=== PATIENT | female | born 1960 | race Caucasian/White ===

== ENCOUNTER 2019-05-23 01:58 | Outpatient (CLI) | payer BC, SELFPAY ==
--- NOTE | 2019-05-23 | DI.MAMMO_ITS ---
EXAM: MG MAMMO SCREENING CLINICAL HISTORY: SCREENING, Z12.31 TECHNIQUE: Mammograms were interpreted according to the usual protocol including computer analysis w [employer] CAD system, tomosynthesis and C-view imaging. COMPARISON: FINDINGS: Breasts are heterogeneously dense. There are numerous punctate microcalcifications predominantly in the upper outer quadrant of the left breast. No gross interval change appearance comparison with carolee or studies including January 2017. No new mass or clumped microcalcification seen. IMPRESSION: No specific evidence of malignancy at this time. Routine screening examinations are suggested at ye yosi intervals due to the family history of breast carcinoma. Category 1 breast density category C
== END 2019-05-23 02:18 ==
PROVIDERS: PCP Family Medicine; Visit Provider Family Medicine
DX: Z12.31 Encounter for screening mammogram for malignant neoplasm of breast (principal)
CPT/HCPCS: 77063; 77067

== ENCOUNTER 2019-05-23 10:02 | Outpatient (REF) | payer BC, SELFPAY ==
--- NOTE | 2019-05-23 09:30 | PAPFT_PTH ---
PATIENT: Mariya Dodson LOC: [facility] U#:[id number] AGE/SX: 58/F ROOM: RE05/23/[address]: KHADIJAH Srinivasan : 1960 BED: DIS: 05/23/2019 SPEC #: [id number] RECD: 05/23/19 12:47 STATUS: [place] RESánchez #: [id number] MAYO: 05/23/19 09:[address]: Michelle Britton DEPT: [facility] Cytology RECD BY: Franny Stevens ENTERED: 05/23/19 12:47 SP TYPE: PAPFT OTHR DR: Sirisha Pedraza Tissues: 1 - CX/ENDOCX FOR PAP SMEARS Procedures: PAP THIN PREP/UVM Screening HPV DNA PROBE Comments: [id number]
== END 2019-05-23 10:22 ==
LOC: LBN 10:02
PROVIDERS: PCP Family Medicine; Visit Provider Nurse Practitioner Family
DX: Z12.4 Encounter for screening for malignant neoplasm of cervix (principal); Z11.51 Encounter for screening for human papillomavirus (HPV)
CPT/HCPCS: 88142; 87624

== ENCOUNTER 2020-07-11 19:18 | Emergency (ER) | payer BC, SELFPAY ==
[2020-07-11 19:27] VITALS: BP 137/65; PULSE 75; RESP 16; TEMP 36.7; O2SAT 96
--- NOTE | 2020-07-11 19:30 | DI.RAD_ITS ---
EXAM: XR KNEE LT 3V AP,LAT,SMILEY CLINICAL HISTORY: knee pain. TECHNIQUE: 2D digital imaging was performed. COMPARISON: No exams were available for comparison FINDINGS: BONES: No acute fracture is present. No bony destructive lesion is seen. There is an enthesophyte at the superior patella. JOINTS: The knee is normally aligned. No joint effusion is seen. SOFT TISSUE: Normal. IMPRESSION: No acute abnormality. DATA REPOSITORY: RADIATION DOSE DELIVERED:
--- NOTE | 2020-07-11 19:44 | ED.GENADUL_ITS ---
Discharge Plan Disposition Patient Disposition: HOME Condition: Stable Discharge Details Clinical Impression: Knee pain, left Primary Care Provider: Sirisha Pedraza ED Provider: Jasper Palomo Home Meds and New Rx's Prescriptions: Continued One-A-Day Women's 50 Plus 400-20 mcg tablet 1 tab PO DAILY RF: 0 cholecalciferol (vitamin D3) [Vitamin D3] 25 mcg (1,000 unit) Capsule 500 unit PO DAILY RF: 0 Discharge Instructions Instructions: Knee Pain (ED) Additional Instructions: Your xray did not show any abnormalities of the bone of your knee. I suspect you have a sim's cyst which is usually self limiting and resolves on its own you should be contacted with an appointment to return to have an ultrasound done by radiology tomorrow you can take 1000mg tylenol and 600mg ibuprofen every 6 hours for pain as needed if you have severe worsening pain, feel more ill or difficulty breathing return to the emergency department Medical Decision Making 59 yo female with no chronic medical problems comes in with 2 weeks of nontraumatic left posterior knee pain. 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 No fevers or chills, states the back of her left knee feels swollen. Denies calf tenderness and on exam both legs seem symmetric without visible swelling of the left leg compared to the right leg. Has full rom of the leg with normal cap refill and sensationand no calf tenderness. Has pain with palpation to the posterior left knee. No erythema or warmth on exam. On bedside u/s has collapsing popliteal vein. I suspect bakery's cyst vs arthritis vs bursitis, no findings to suggest septic joint and based on exam less likely to be a dvt. Will obtain xray to evaluate for possible arthritis and less likely fracture. pt remains stable and still only has pain behind the knee on the left. Xray shows no acute pathology, they noted enthersopathy on xray. Stable exam. Suspect bursitis vs sim's cyst but will have her return tomorrow for an u/s. Will have her start ibuprofen and tylenol. I did offer muscle relaxers for possible relief of muscle spasm associated with the pain but she declined. Usually and customary return precautions given Differential Diagnosis Differential Diagnosis: sim's cyst, dvt, arthritis Imaging Data Radiologic Study: Attestation: I personally reviewed and interpreted this imaging study as follows: Imaging: X-Ray My impression: no acute findings Radiologist's impression: IMPRESSION: Chronic distal quadriceps enthesopathy, otherwise unremarkable exam. HPI General Mode of arrival: ambulatory . Date/Time Provider Initiated Documentation: 07/11/20 19:19 . Limitations to Documentation: no limitations . Information obtained by: patient . History of Present Illness 59 year old F presents to the emergency department with the chief complaint of left knee pain, described as moderate, Patient started experiencing this week(s) (2) and it has been constant. Rest improves symptom(s), Movement worsens symptoms . Patient notes no other symptoms.. Patient did receive the following treatments prior to arrival, none Related Data Home Medications Medication Instructions Recorded Confirmed kezgpmncquaw-onrmwqre-cupivrn-folic 1 tab PO DAILY 05/23/19 07/11/20 acid 400 mcg-vit K1 20 mcg tablet cholecalciferol (vitamin D3) 500 unit PO DAILY 07/11/20 07/11/20 [Vitamin D3] Allergies Allergy/AdvReac Type Severity Reaction Status Date / Time No Known Allergies Allergy Verified 07/11/20 19:33 General Stated Complaint: Vascular NARCISO: 3 Review of Systems All systems reviewed & are unremarkable except as noted in HPI and below Constitutional Constitutional: Denies chills, Denies fever(s) and Denies weakness Cardiovascular Cardiovascular: Denies chest pain and Denies dyspnea Respiratory Respiratory: Denies cough and Denies dyspnea Gastrointestinal Gastrointestinal: Denies abdominal pain, Denies nausea and Denies vomiting Neurologic Neurologic: Denies weakness Psychiatric Psychiatric: Denies depression [facility] Medical History (Updated 07/11/20 @ 20:18 by Jasper Palomo MD) BMI 39.0-39.9,adult Lumbar foraminal stenosis 06/2015 L4-L5 R sided spinal stenosis. Is scheduled for L4-L5 decompression. Radha-menopause irreg cycles. No VMS. Surgical History (Updated 01/12/18 @ 14:35 by [employer] MA) Ligation of fallopian tube Family History Mother Heart disease Social History Smoking/Tobacco Use Status: Never Smoking risk assessment performed?: Yes Alcohol Intake: never Drug use: Never Substance use type: does not use Do you feel safe at home: Yes Do you feel safe in your relationship?: Yes Female Reproductive History Menstrual Menopause type: natural History History 4 Para 4 Hx # Term Pregnancies Multiple births Hx # Pregnancies Ectopic pregnancies AB induced Hx Number of Living Children AB spontaneous Exam Const General: no acute distress Orientation: alert HENMT Head: normal to inspection Ears: external ears normal General nose exam: external nose normal Mouth: moist mucous membranes Eyes General: appearance normal, both eyes and all related structures Neck Neck: normal visual inspection Resp Effort & Inspection: normal respiratory effort and able to speak in complete sentences Cardio Rate: regular rate Skin General skin exam: no rashes or lesions noted Neuro General: patient alert and patient oriented x3 Extrem General: full ROM and capillary refill normal Psych Mental Status: mental status grossly normal Course Vital Signs Vital signs: Vital Signs Temperature 36.7 C 07/11/20 19:27 Pulse 75 07/11/20 19:27 Respiratory Rate 16 07/11/20 19:27 Blood Pressure 137/65 07/11/20 19:27 Pulse Oximetry 96 07/11/20 19:27 Temperature 36.7 C 07/11/20 19:27 Temperature Source Skin 07/11/20 19:27 Pulse 75 07/11/20 19:27 Respiratory Rate 16 07/11/20 19:27 Blood Pressure 137/65 07/11/20 19:27 Blood Pressure Position Sitting 07/11/20 19:27 Pulse Oximetry 96 07/11/20 19:27 Oxygen Delivery Method Room Air 07/11/20 19:27 Oxygen Flow Rate 0 07/11/20 19:27 Pain Level 8 07/11/20 19:27
[2020-07-11 19:52] VITALS: RESP 18
--- NOTE | 2020-07-11 20:11 | DI.VRAD_ITS ---
PROCEDURE INFORMATION: Exam: XR Left Knee Exam date and time: 07/11/2020 7:58 PM Age: 59 years old Clinical indication: Pain; Knee; Left TECHNIQUE: Imaging protocol: XR Left knee. Views: 3 views. COMPARISON: No relevant prior studies available. FINDINGS: Bones/joints: Small superior pole patellar enthesophyte. Knee joint spacing and alignment are anatomic. No fracture or dislocation. No joint effusion. Normal osseous mineralization. Soft tissues: Normal. IMPRESSION: Chronic distal quadriceps enthesopathy, otherwise unremarkable exam. Dictated and Authenticated by: Holland Meek MD. Ordering:ARVIN Hutchinson MD
[2020-07-11] MEDS: Ibuprofen 600 MG TAB PO (20:14)
[2020-07-11 20:15] VITALS: BP 117/47; PULSE 70; RESP 16; O2SAT 97
== END 2020-07-11 20:37 | disposition home or self-care (01) ==
PROVIDERS: Emergency Provider Emergency Medicine; PCP Family Medicine
DX: M25.562 Pain in left knee (principal)
CPT/HCPCS: 73562; 99283

== ENCOUNTER 2020-07-12 10:40 | Outpatient (CLI) | payer BC, SELFPAY ==
[2020-07-12 12:29] LABS: HCT 42.3 % (36.0-46.0); HGB 13.5 g/dL (11.2-15.7); MCHC 31.9 % (32.0-36.0); MPV 10.3 fL (8.0-11.0); Platelet Count 270 10^3/uL (130-400); RBC 4.65 10^6/uL (3.93-5.22); RDW 12.5 % (11.7-14.6); RDW-SD 41.7 fL
[2020-07-12 13:35] LABS: D-Dimer 306 ng/mlFEU (<500)
== END 2020-07-12 10:41 | disposition home or self-care (01) ==
LOC: LBO 10:41
PROVIDERS: PCP Family Medicine; Visit Provider Family Medicine
DX: M79.605 Pain in left leg (principal)
CPT/HCPCS: 36415; 85027; 85379

== ENCOUNTER 2020-07-12 12:59 | Emergency (ER) | payer BC, SELFPAY ==
[2020-07-12 13:02] VITALS: BP 155/71; PULSE 64; RESP 20; TEMP 36.3; O2SAT 97
--- NOTE | 2020-07-12 13:05 | W.ED.GENAD ---
Discharge Plan Disposition Patient Disposition: HOME Condition: Stable Discharge Details Clinical Impression: Knee pain, left Primary Care Provider: Sirisha Pedraza ED Provider: Katherine Miner Home Meds and New Rx's Prescriptions: No Action One-A-Day Women's 50 Plus 400-20 mcg tablet 1 tab PO DAILY RF: 0 cholecalciferol (vitamin D3) [Vitamin D3] 25 mcg (1,000 unit) Capsule 500 unit PO DAILY RF: 0 Discharge Instructions Instructions: Knee Sprain (ED) Additional Instructions: The ultrasound today was negative for deep venous thrombosis or Guajardo's cyst. Rest, ice, compression, elevation. Alternate ice and heat. Please take Tylenol or Ibuprofen with food every 4-6 hours as needed for pain and swelling. Follow up with primary care provider in 3-5 days. Return to ED sooner if any worsening or concerns. Increase oral fluids. Referrals: Sirisha Pedraza [Primary Care Provider] - Medical Decision Making Ultrasound results reveals no DVT no Guajardo's cyst. Results discussed with patient plan is for discharge home with follow-up with PCP. EXAM: US LOWER EXTREMITY VENOUS LT CLINICAL HISTORY: LT KNEE PAIN TECHNIQUE: Left lower extremity venous ultrasound performed using grayscale, color-flow, and spectral Doppler analysis. COMPARISON: No exams were available for comparison FINDINGS: The left common femoral, femoral and popliteal veins demonstrate normal compressibility, augmentation, and color Doppler. The posterior tibial veins are patent. The saphenofemoral junction is unremarkable. There is no evidence of a Guajardo cyst. The soft tissues are unremarkable. IMPRESSION: No DVT. Discussed RICE procedures with patient who verbalizes understanding. HPI General Mode of arrival: ambulatory. Date/Time Provider Initiated Documentation: 07/12/20 13:04. Limitations to Documentation: no limitations. Information obtained by: patient and old records reviewed. HPI Narrative: D9-year-old female presents the ER for follow-up on a ultrasound of the left lower extremity which was done this morning. Related Data Home Medications Medication Instructions Recorded Confirmed nwzsqgeozwqm-ntvqbtia-zbsetei-folic 1 tab PO DAILY 05/23/19 07/12/20 acid 400 mcg-vit K1 20 mcg tablet cholecalciferol (vitamin D3) 500 unit PO DAILY 07/11/20 07/12/20 [Vitamin D3] Allergies Allergy/AdvReac Type Severity Reaction Status Date / Time No Known Allergies Allergy Verified 07/11/20 19:33 General Stated Complaint: Recheck NARCISO: 4 Review of Systems All systems reviewed & are unremarkable except as noted in HPI and below Musculoskeletal Musculoskeletal: Reports arthralgias (Left knee) COUNT INCLUDES THE [facility] Medical History (Updated 07/12/20 @ 13:14 by Katherine Miner) BMI 39.0-39.9,adult Lumbar foraminal stenosis 06/2015 L4-L5 R sided spinal stenosis. Is scheduled for L4-L5 decompression. Radha-menopause irreg cycles. No VMS. Surgical History (Updated 01/12/18 @ 14:35 by [employer] [place]) Ligation of fallopian tube Family History Mother Heart disease Social History Smoking/Tobacco Use Status: Never Smoking risk assessment performed?: Yes Alcohol Intake: never Drug use: Never Substance use type: does not use Do you feel safe at home: Yes Do you feel safe in your relationship?: Yes Female Reproductive History Menstrual Menopause type: natural History History 4 Para 4 Hx # Term Pregnancies Multiple births Hx # Pregnancies Ectopic pregnancies AB induced Hx Number of Living Children AB spontaneous Exam Const General: cooperative, healthy appearing, comfortable and well developed Nutritional Appearance: well nourished Orientation: alert, awake and oriented x3 Resp Effort & Inspection: normal respiratory effort and able to speak in complete sentences Extrem General: normal to inspection Course Vital Signs Vital signs: Vital Signs Temperature 36.3 C L 07/12/20 13:02 Pulse 64 07/12/20 13:02 Respiratory Rate 20 07/12/20 13:02 Blood Pressure 155/71 H 07/12/20 13:02 Pulse Oximetry 97 07/12/20 13:02 Temperature 36.3 C L 07/12/20 13:02 Temperature Source Skin 07/12/20 13:02 Pulse 64 07/12/20 13:02 Respiratory Rate 20 07/12/20 13:02 Respiratory Effort Non-Labored 07/12/20 13:05 Blood Pressure 155/71 H 07/12/20 13:02 Blood Pressure Position Sitting 07/12/20 13:02 Pulse Oximetry 97 07/12/20 13:02 Oxygen Delivery Method Room Air 07/12/20 13:02 Oxygen Flow Rate 0 07/12/20 13:02 Pain Level 4 07/12/20 13:02
== END 2020-07-12 13:16 | disposition home or self-care (01) ==
PROVIDERS: Emergency Provider Registered Nurse Emergency; PCP Family Medicine
DX: M25.562 Pain in left knee (principal)

== ENCOUNTER 2020-10-07 01:27 | Outpatient (CLI) | payer BC, SELFPAY ==
--- NOTE | 2020-10-07 07:45 | DI.MAMMO_ITS ---
Exam(s) MAMMO SCREENING EXAM: MAMMO SCREENING CLINICAL HISTORY: screening,Z12.39. TECHNIQUE: Bilateral full field digital CC and MLO mammographic images were obtained with 3D tomosyn thesis and utilizing computer aided detection (CAD). COMPARISON: Prior mammograms dating back to 2011, the most recent being April 2019. FINDINGS: The fibroglandular tissue pattern is dense, this decreasing the sensitivity of the mammogram for find ing hidden underlying lesions. There is an asymmetric density seen superiorly in the right breast located 9 cm above the nipple on t he MLO view but unchanged from all prior studies and therefore benign. There are numerous benign-appearing microcalcifications both breasts again noted. There are no new spiculated masses nor new malignant appearing microcalcification groups. There is no significant architectural distortion nor skin thickening-retraction. IMPRESSION: Dense bilateral fibroglandular tissue. Stable benign findings. No obvious radiographic evidence of malignancy. BI-RADS Category 2 - Benign Findings Breast Density - Category C - Heterogeneously dense Breast density Category C or D implies that the patient has dense breast tissue. Dense breast tissue can make it harder to find cancer on a mammogram. Dense breast tissue is also associated with an incr eased risk of breast cancer. This information about the result of the mammogram report was provided to the patient to raise their awareness. Use this report when you speak with the patient about their risks for breast cancer, which includes their family history. At that time, you may recommend additional screening tests (Ultrasoun d or MRI) as these tests may add significant information. A negative radiographic report should not delay biopsy if a dominant or clinically suspicious mass is present. Up to ten percent of cancers are not identified on mammography. A negative report may reinforce clinical impression. Adenosis and dense breasts may obscure an underlying neoplasm. False positive reports average 6 to 10%. Patient will receive a letter notifying them of these results.
== END 2020-10-07 01:47 ==
PROVIDERS: PCP Family Medicine; Visit Provider Nurse Practitioner Family
DX: Z12.31 Encounter for screening mammogram for malignant neoplasm of breast (principal); R92.8 Other abnormal and inconclusive findings on diagnostic imaging of breast
CPT/HCPCS: 77063; 77067

== ENCOUNTER 2021-04-11 03:41 | Outpatient (CLI) | payer BC, SELFPAY ==
[2021-04-11 10:24] LABS: Source Nasal/Nares
[2021-04-11 13:23] LABS: COVID-19 PCR Negative (Negative)
== END 2021-04-11 03:42 | disposition home or self-care (01) ==
LOC: LBO 03:41
PROVIDERS: PCP Family Medicine; Visit Provider Surgery
DX: Z20.822 Contact with and (suspected) exposure to COVID-19 (principal)
CPT/HCPCS: 87635

== ENCOUNTER 2021-04-14 07:02 | Day surgery (SDC) | payer BC, SELFPAY ==
--- NOTE | 2021-04-14 06:38 | W.COLOREPORT ---
Colonoscopy Report Date of procedure: 04/14/21 Pre-op diagnosis general: Colon Cancer Screening for hx of colon polyps Post-op diagnosis procedure note: other (diverticulosis, polyps) Procedure: Colonoscopy with polypectomy Surgeon: Fidelina Louis Anesthesia Type: General:No Airway (Maritza Shields CRNA) Estimated blood loss (mL): 3 Pathology: other (ascending polyp, rectal polyp x2) Complications: None Disposition: same day Indications: The patient is here for Colonoscopy pre-op. Her last screening was in 2015 and was remarkable for tubular adenomatous polyp. She has no family history of colon cancer. She has not had any bowel habit changes. -Discussed colonoscopy bowel prep as well as the procedure. Discussed possible complications of the procedure to include bleeding, pain, perforation, missed small lesion/polyp, sore throat, aspiration and adverse reaction to the medications. Questions were answered to patient?s satisfaction. No guarantees were implied or given. Prep: Miralax/Dulcolax Procedure Start Time: 08:31 Procedure End Time: 08:59 Retraction Time: 14 minutes Findings: 3 small , <5 mm, polyps moderate sigmoid diverticulosis Procedure Description: After informed consent was obtained the patient was taken to the procedure room and placed in a left decubitous position. Monitors were applied and a time out was done. The patients name, date of , procedure, allergies to medications and metal in their body was reviewed. The patient was then sedated. Once sedated and comfortable a rectal exam was done. External exam was normal. Internal exam revealed a normal sphincter tone and no palpable masses. The scope was then introduced and retro-flexed. No internal hemorrhoids, polyps or masses were identified on retro-flexion. The scope was then advanced to the cecum without difficulty. The ileocecal vlave and appendiceal orifice were identified. The prep was good. The scope was then slowly retracted over 14 minutes back into the rectum. Polyps were removed with cold forceps in the ascending colon x1 and rectum x2. There was moderate sigmoid diverticulosis noted. The scope was removed and the patient was woken up and taken back to Same day surgery in stable condition. The patient tolerated the procedure well and there were no immediate complications. Follow up: The patient should follow up in 5 years unless they develop changes in bowel habits or other new gastrointestinal complaints.
--- NOTE | 2021-04-14 06:39 | W.PM.DSUDISC ---
Discharge Plan Disposition Patient Disposition: HOME Condition: Good Discharge Details Reason For Visit: Colonoscopy Attending Provider: Fidelina Louis Primary Care Provider: Sirisha Pedraza Home Meds and New Rx's Prescriptions: Continued multivitamin Tablet 1 tab PO DAILY RF: 0 betamethasone dipropionate 0.05 % cream 1 applic topical DAILY PRNRF: 0 Exema Essential Oil topical RF: 0 cholecalciferol (vitamin D3) [Vitamin D3] 25 mcg (1,000 unit) Capsule 500 unit PO DAILY RF: 0 Discontinued bisacodyl [Dulcolax (bisacodyl)] 5 mg tablet,delayed release (DR/EC) 5 mg PO ONCE Qty: 4 RF: 0 polyethylene glycol 3350 17 gram/dose powder 17 g PO ONCE Qty: 238 RF: 0 Discharge Instructions Instructions: Diverticulosis (DC), Colorectal Polyps (DC) Additional Instructions: Findings: 3 small polyps moderate diverticulosis Follow up: 5 years Please call if you develop: fevers >101.5 Nausea or Vomiting Abdominal pain that is not transient Rectal bleeding that is more then a tbsp A hard abdomen and inability to pass gas DAY SURGERY UNIT POST ENDOSCOPY INSTRUCTIONS Instructions for everyone who is given Anesthesia: For your safety, please do the following for the next 24 Hours: a. Do not drive or operate dangerous equipment b. Do not drink alcohol beverages or use any recreational drugs for the first 24 hours or while taking pain medications. The medications in your body may have a reaction that can be dangerous. c. Do not make any important decisions or sign any important papers 1. Generally there are no restrictions on your activity after a day or so has gone by, but you may feel a bit fatigued for a few days. 2. After you arrive home you may have a light meal and return to a normal diet as you can tolerate it without feeling sick to your stomach. 3. After surgery, you may feel pain or discomfort. This should be only transient, but if it persists please contact your doctor. 4. If there are any questions regarding the findings of your procedure, please feel free to contact your doctor. 6. If you are unable to contact your doctor with a problem, contact the hospital at [phone]. 7. Continue all your regular medications unless directed otherwise. I understand the above instructions and have no questions. Signature of Patient or Responsible Adult Escort Date/Time Name of Responsible Adult Escort Signature of Nurse Date/Time Activity:: Activity as Tolerated Diet:: high fiber Discharge Orders Discharge Orders: Discharge Order (Routine); Ordered 04/14/21 Ordered By: Fidelina Louis
[2021-04-14 07:20] VITALS: BP 147/76; PULSE 72; RESP 16; TEMP 36.1; O2SAT 98
--- NOTE | 2021-04-14 07:42 | ANES.PREOP_ITS ---
General Info Date of Service Date Performed: 04/14/21 Height: 5 ft 1 in Weight: 95.3 kg Body Mass Index (BMI): 39.6 Surgical Procedure: Operation Date: 04/14/21 08:35 Proposed Procedures Side Surgeon p Colonoscopy Fidelina Louis MD Meds Allergies and Home Medications Allergies Allergy/AdvReac Type Severity Reaction Status Date / Time No Known Allergies Allergy Verified 04/14/21 07:18 Home Medication Medication Instructions Recorded cholecalciferol (vitamin D3) 500 unit PO DAILY 07/11/20 [Vitamin D3] Exema Essential Oil TOPICAL 10/07/20 bisacodyl 5 mg tablet,delayed 5 mg PO ONCE #4 tab 04/03/21 release multivitamin 1 tab PO DAILY 04/03/21 polyethylene glycol 3350 17 17 g PO ONCE #238 g 04/03/21 gram/dose oral powder betamethasone dipropionate 0.05 % 1 applic TOPICAL DAILY PRN 04/04/21 topical cream Current Visit Medications: Current Medications Generic Name Dose Route Start Last Admin Trade Name Mehulq PRN Reason Stop Dose Admin Hyoscyamine Sulfate 0.125 mg 04/14/21 06:39 Hyoscyamine 0.125 Mg Sl/Oral/Chew SL DIRECTED PRN Ringer's Solution 1,000 mls @ 80 mls/hr 04/14/21 06:00 IV 05/11/21 23:59 INFUSION [facility] IV Miscellaneous Supplies 1 each 04/14/21 06:00 Iv Access IV 05/11/21 23:59 DIRECTED ADAMARIS Ondansetron HCl 4 mg 04/14/21 06:39 Ondansetron 4 Mg/2 Ml Vial IVP Q4H PRN PRN Nausea / Vomiting Sodium Chloride 0 ml 04/14/21 06:00 Normal Saline Flush 10 Ml Syr IV 05/11/21 23:59 PRN PRN Sodium Chloride 0 ml 04/14/21 06:00 Normal Saline 10 Ml Vial IJ 05/11/21 23:59 DIRECTED PRN Sterile Water 0 ml 04/14/21 06:00 Water,Injection,Sterile 10 Ml Vial IJ 05/11/21 23:59 DIRECTED PRN PFSH Active Problems Active Problems: Problem Status Onset Code Screening for colon cancer Z12.11 Left bundle branch block I44.7 Medical History Medical History BMI 39.0-39.9,adult Eczema Knee pain, left Lumbar foraminal stenosis 06/2015 L4-L5 R sided spinal stenosis. Is scheduled for L4-L5 decompression. Radha-menopause irreg cycles. No VMS. Varicose veins of both lower extremities Surgical History Surgical History (Updated 04/14/21 @ 07:18 by Lulu Crabtree RN) History of lumbar laminectomy Ligation of fallopian tube Tobacco Smoking/Tobacco Use Status: Never Alcohol Alcohol Intake: never Substance Use Substance use: Never Substance use type: does not use Prental History History 4 Para 4 Hx # Term Pregnancies Multiple births Hx # Pregnancies Ectopic pregnancies AB induced Hx Number of Living Children AB spontaneous Vital Signs and Lab Results Vital Signs Most Recent Vital Signs in EMR: Most Recent Vital Signs Temp Pulse Resp BP Pulse Ox 36.1 C L 72 16 147/76 H 98 04/14/21 07:20 04/14/21 07:20 04/14/21 07:20 04/14/21 07:20 04/14/21 07:20 Lab Results Blood Type / Crossmatch: No Data to Display Complete Blood Count: No Data to Display Complete Metabolic Panel: No Data to Display Liver Function Panel: No Data to Display Coagulation Panel: No Data to Display Cardiac Panel: No Data to Display Arterial Blood Gas: No Data to Display Venous Blood Gas: No Data to Display Pancreas Panel: No Data to Display Thyroid Panel: No Data to Display Infectious Disease: Coronavirus (COVID-19)(PCR) Negative (Negative) 04/11/21 08:55 04/11/21 Coronavirus 2019 Source Nasal/Nares 04/11/21 08:55 04/11/21 Blood Cultures: No Data to Display Toxicology Panel: No Data to Display Imaging and Studies Imaging and Studies Study information below may be from another EMR and interpreted by another provider. Please see original notes in EMR for more complete details. Carotid Artery Summary:: IMPRESSION: No evidence of a hemodynamically significant carotid stenosis. 11/12/15 Anesthesia Assessment and Plan Anesthesia History Personal History: No History of Anesthesia Complications Family History: No Family History of Anesthesia Complications Exercise Tolerance Exercise Tolerance: Metabolic Equivalents>4 Pertinent Negatives Pertinent Negatives: No Symptoms of GERD, No Major Cardiovascular Symptoms or Complaints, No Major Pulmonary Symptoms or Complaints and No History of CVA/TIA Cardiac & Pulmonary Exam Cardiac Exam: Normal S1/S2 Heart Sounds Pulmonary Exam: Clear Bilateral Breath Sounds Implantable Cardiac Device Does patient have a Pacemaker or an ICD?: No Airway Exam Known Difficult Airway: No Mallampati Class: 2 Mouth Opening: Normal (> 3cm) Thyromental Distance: Greater than 3 cm Neck Range of Motion: Full ROM Neck Circumference: Thick Teeth Condition: Normal Dentition ASA Classification ASA Score: ASA 3 Emergency Case?: No NPO Status NPO Status: NPO Clears >2 hours, Solids >8 hours Anesthesia Plan Resuscitation Status: Full Code Anesthesia Technique: General Anesthesia Airway Planned: Natural Airway Monitors Used: Standard Monitors
[2021-04-14] MEDS: Lactated Ringers 1,000 ML 80 ML IV (07:55)
[2021-04-14 08:21] VITALS: BMI 39.6
--- NOTE | 2021-04-14 08:46 | BOWEL_PTH ---
PATIENT: Mariya Dodson LOC: [facility] U#:[id number] AGE/SX: 60/F ROOM: RE04/14/[address]: Fidelina Louis MD : 1960 BED: DIS: 04/14/2021 SPEC #: [id number] RECD: 04/14/21 12:28 STATUS: [place] RESánchez #: [id number] MAYO: 04/14/21 08:[address]: Fidelina Louis DEPT: Surgical Specimen RECD BY: Franny Stevens ENTERED: 04/14/21 12:29 SP TYPE: Bowel OTHR DR: Sirisha Pedraza Tissues: 1 - BIOPSY BOWEL 2 - BIOPSY BOWEL Procedures: GROSS AND MICRO LEVEL 4 Comments: [id number]
[2021-04-14 09:07] VITALS: BP 136/77; PULSE 71; RESP 18; TEMP 36.5; O2SAT 97
--- NOTE | 2021-04-14 09:17 | W.ANESPOSTOP ---
Postoperative Evaluation Date, Time and Location Date Performed: 04/14/21 Time Performed: 09:07 Patient Location: Day Surgery Unit Vital Signs Most Recent Imported Vital Signs: Most Recent Vital Signs Temp Pulse Resp BP Pulse Ox 36.5 C 71 18 136/77 97 04/14/21 09:07 04/14/21 09:07 04/14/21 09:07 04/14/21 09:07 04/14/21 09:07 Pain Score Most Recent Pain Score: Most Recent Pain Score Pain Level 0 04/14/21 09:07 Assessment Mental Status: Awake (Alert & Oriented to Patient Baseline) Airway and Respiratory Function: Patent airway with normal (patient baseline) respiratory exam Cardiovascular Function: Hemodynamically Stable Hydration Status: Adequately Hydrated Nausea & Vomiting: No Nausea or Vomiting Pain: Pt. Denies Any Pain Peripheral Nerve Block: Patient did not receive a nerve block
[2021-04-14 09:35] VITALS: BP 133/75; PULSE 67; RESP 16; TEMP 36.4; O2SAT 97
== END 2021-04-14 10:20 | disposition home or self-care (01) ==
PROVIDERS: PCP Family Medicine; Visit Provider Surgery
PROC: 0DJD8ZZ Inspection of Lower Intestinal Tract, Via Natural or Artificial Opening Endoscopic (ICD-10-PCS; CPT 45378; principal; 2021-04-14 08:30)
DX: Z12.11 Encounter for screening for malignant neoplasm of colon (principal); D12.2 Benign neoplasm of ascending colon; K62.1 Rectal polyp; Z86.010 Personal history of colon polyps; K57.30 Diverticulosis of large intestine without perforation or abscess without bleeding
CPT/HCPCS: 45380; 88305; J2001

== ENCOUNTER → 2021-06-30 01:03 | Outpatient (CLI) | payer BC, SELFPAY ==
--- NOTE | 2021-06-30 14:45 | DI.MRI_ITS ---
Exam(s) MR UPPER JOINT LT WO EXAM: MR UPPER JOINT LT WO CLINICAL HISTORY: LT SHOULDER PAIN, M25.512, BICEPS TENDINITIS OF LT SHOULDER, M75.22 TECHNIQUE: Multiplanar multisequence MRI of the shoulder was performed. There are no prior shoulder imaging studies for comparison. No prior plain films of the left shoulde r available time this MRI interpretation. COMPARISON: None FINDINGS: MARROW:No evidence of fracture, Hill-Sachs deformity, bony Bankart lesion, nor ominous osseous lesion s there are degenerative subarticular cysts in the inferior half of the osseous glenoid. ROTATOR CUFF MECHANISM: AC JOINT/ACROMIUM: There are mild degenerative changes in the AC joint. No downgoing osteophytes alt dao there is mild hypertrophied undersurface tissue causing some pinch mint. The undersurface of t he acromion is concave. No undersurface impingement hook noted. There is no obvious calcification i n the coracoacromial ligament There is no evidence of os acromiale. Supraspinatus: There is a prominent signal void in the supraspinatus tendon consistent with a chunk o f calcium, this measuring 1.5 cm AP by 1.3 cm wide by 0.8 cm craniocaudal. Consider cyst into with c alcific rotator cuff tendinitis. There is some adjacent signal abnormality in the supraspinatus tend on with which are but without an obvious full-thickness tear. There is, however, some fluid in the o verlying subacromial-subdeltoid bursa, probably an element of bursitis. There is no atrophy of the s upraspinatus. No retraction of the musculotendinous junction. Infraspinatus: Intact. No evidence of tear nor muscle atrophy. Teres Minor: Intact. No evidence of tear nor muscle atrophy. Subscapularis/anterior cuff: Intact. No abnormal signal at the level of the multipennate insertional fibers. No significant tear nor atrophy. BICEPS TENDON: Normally position in the intertubercular groove. No evidence of tear. No tenosynovitis. LABRUM: There is mild fluid signal in the superior labrum posterior to the biceps insertion site. Pr obably sublabral recess. Posterior labrum appears intact. The anterior labrum exhibits some intrasu bstance signal consistent with probable tearing. No evidence of paralabral cyst. Inferior labrum ap pears intact. There are multiple findings in the inferior osseous glenoid which are probably degener ative subarticular cysts. Other consideration would be prior labral repair. There is no obvious tear of the inferior glenohumeral ligament. No fluid nor loose bodies evident within the inferior recess. GLENOHUMERAL JOINT: No joint effusion nor obvious loose intra-articular bodies. No chondral defects. No osteophytes. No evidence of capsular tear. The inferior glenohumeral ligament is intact. QUADRILATERAL SPACE: No evidence of mass in the region of the axillary nerve and dorsal circumflex hu meral vessels. Visualized triceps muscle at this level appears unremarkable. IMPRESSION: 1. There is a prominent focus of signal dropout in the foot pad insertional aspect of the supraspinat us tendon measuring 15 x 13 x 8 millimeters consistent with calcific rotator cuff tendinitis. There is overlying fluid in the subacromial bursa consistent with bursitis. There does not appear to be a full-thickness tear of the rotator cuff tendon. 2. There appears to be some tearing of the anterior labrum. No evidence of paralabral cyst. No obvi ous biceps tendon tear. Multiple findings in the inferior osseous glenoid are either degenerative dial barticular cysts or possibly related to prior labral surgery. 3. Mild impingement at the AC joint level. Mild degenerative changes in the glenohumeral joint. No osteophytes. No glenohumeral joint effusion. No biceps tenosynovitis. DATA REPOSITORY:
== END ==
PROVIDERS: PCP Family Medicine; Visit Provider Specialist
DX: M25.512 Pain in left shoulder (principal); M75.52 Bursitis of left shoulder; M75.32 Calcific tendinitis of left shoulder; M25.812 Other specified joint disorders, left shoulder; M19.012 Primary osteoarthritis, left shoulder; S43.432A Superior glenoid labrum lesion of left shoulder, initial encounter; X58.XXXA Exposure to other specified factors, initial encounter
CPT/HCPCS: 73221